=== PATIENT | male | born 1935 | race Caucasian/White ===

== ENCOUNTER 2016-03-21 20:27 | Inpatient (IN) | payer OTHER, MEDICARE ==
[~2016-03-21] VITALS: Ht 177.8 cm; Wt 98.5 kg
[~2016-03-21 20:27] MED LIST: ADVAIR HFA120 INHALA IH; AMLODIPINE BESYL5 MG PO; ASPIRIN81 M1 PO; CEPHALEXIN500 MG PO; COUMADIN,JANTO7.5 MG PO; COUMADIN5 MG PO; FUROSEMIDE40 MG PO; GLIPIZIDE5 MG PO; LASIX10 MG PO; LASIX40 MG PO; LO-DOSE ASPIRIN81 M1 PO; LOPRESSOR100 M1 PO; METOPROLOL SUC100 MG PO; PANTOPRAZOLE SO40 MG PO; PREDNISONE20 MG PO; SIMVASTATIN80 M1 PO; TYLENOL REGULA325 MG PO; VITAMIN C500 M1 PO; VITAMIN E400 UNIT PO; ZESTORETIC,P1 TABLE2 PO
[2016-03-21 20:59] LABS: HEMATOCRIT 36.4 % (38.0-50.0); MCH 30.1 PG (29.0-34.0); MCHC 32.1 G/DL (30.0-36.0); MCV 93.6 FL (86-99); MEAN PLAT.VOLUME 9.1 uM^3 (9.0-12.4); PLATELET COUNT 224 K/uL (156-360); RBC DIS.WIDTH-SD 58.5 % (39-53); RED BLOOD COUNT 3.89 M/uL (4.00-5.50)
[2016-03-21 21:15] LABS: CHLORIDE 105 mEq/L (99-109); POTASSIUM 4.6 mEq/L (3.7-5.4); SODIUM 139 mEq/L (136-147)
[2016-03-21 21:17] LABS: GLUCOSE 352 mg/dL (70-99)
[2016-03-21 21:18] LABS: ANION GAP 11 MEQ/L (2-14)
[2016-03-21 21:21] LABS: GFR ESTIMATE (CALCULATED) 36 mL/min/; TROP-I INTERPRETATION NEGATIVE; TROPONIN-I 0.11 ng/mL (0.0-0.30)
[2016-03-21 21:22] LABS: UREA NITROGEN (BUN) 30 mg/dL (9-23)
[2016-03-21 22:20] LABS: INTER. NORMALIZED RATIO 2.8; PROTHROMBIN TIME 29.5 (9.2-11.2); PTT 43.2 (25-32)
[2016-03-21] MEDS ORDERED: WARFARIN SODIUM5 MG PO (22:26)
[2016-03-21] MEDS ORDERED: SIMVASTATIN80 MG PO (22:31)
[2016-03-21] MEDS ORDERED: FUROSEMIDE40 MG PO (22:34)
[2016-03-21] MEDS ORDERED: PREDNISONE5 MG PO (22:48)
[2016-03-21] MEDS ORDERED: VITAMIN A DAY1 EACH PO (22:52)
[2016-03-21] MEDS ORDERED: ALLOPURINOL100 MG PO (22:52)
[2016-03-21] MEDS ORDERED: ZITHROMAX250 MG PO (22:54)
[2016-03-21] MEDS ORDERED: MSM1000 MG PO (22:55)
[2016-03-21] MEDS ORDERED: DUONEB 2.5-0.5 M3 ML AEROSOL (22:56)
[2016-03-22 02:51] LABS: POINT-OF-CARE METER ID UU13113702
[2016-03-22 06:32] LABS: HEMATOCRIT 32.9 % (38.0-50.0); MCH 29.5 PG (29.0-34.0); MCHC 31.6 G/DL (30.0-36.0); MCV 93.5 FL (86-99); MEAN PLAT.VOLUME 9.5 uM^3 (9.0-12.4); PLATELET COUNT 184 K/uL (156-360); RBC DIS.WIDTH-CV 17.7 % (11.8-14.6); RBC DIS.WIDTH-SD 60.5 % (39-53); RED BLOOD COUNT 3.52 M/uL (4.00-5.50); WHITE BLOOD COUNT 7.4 K/uL (4.1-10.2)
[2016-03-22 06:42] LABS: INTER. NORMALIZED RATIO 2.9; PROTHROMBIN TIME 30.6 (9.2-11.2)
[2016-03-22 06:56] LABS: ANION GAP 8 MEQ/L (2-14); CHLORIDE 106 MEQ/L (99-109); GFR ESTIMATE (CALCULATED) 44 mL/min/; POTASSIUM 4.2 MEQ/L (3.7-5.4); SAMPLE HEMOLYSIS CHECK 0; SAMPLE ICTERIC CHECK 0; SAMPLE LIPEMIA CHECK 0; SODIUM 142 MEQ/L (136-147); UREA NITROGEN (BUN) 32 mg/dL (9-23)
[2016-03-22 07:03] LABS: EOSINOPHIL (%) 0.4 % (0-5); IMMATURE GRANULOCYTE (%) 0.1 % (0.0-0.7); LYMPHOCYTE COUNT 0.7 K/uL (1.0-2.8); MONOCYTE COUNT 0.7 K/uL (0-0.8); NEUTROPHIL (%) 80.4 % (45-76)
[2016-03-22 07:05] LABS: GLUCOSE 160 mg/dL (70-99)
[2016-03-22 07:18] LABS: POINT-OF-CARE METER ID UU13113702
[2016-03-22 11:02] VITALS: BP 91/46
[2016-03-22 11:18] LABS: POINT-OF-CARE METER ID UU13113702
[2016-03-22 11:33] VITALS: BP 98/62
[2016-03-22 13:29] VITALS: BP 134/68
[2016-03-22 16:21] VITALS: BP 137/78
[2016-03-22 19:00] VITALS: BP 122/61
[2016-03-22 21:29] LABS: POINT-OF-CARE METER ID UU13113698
[2016-03-22 23:00] VITALS: BP 134/77
[2016-03-23 03:00] VITALS: BP 107/59
[2016-03-23 06:51] LABS: HEMATOCRIT 31.6 % (38.0-50.0); MCH 29.6 PG (29.0-34.0); MCHC 31.3 G/DL (30.0-36.0); MCV 94.6 FL (86-99); MEAN PLAT.VOLUME 9.7 uM^3 (9.0-12.4); PLATELET COUNT 173 K/uL (156-360); RBC DIS.WIDTH-CV 17.5 % (11.8-14.6); RBC DIS.WIDTH-SD 60.4 % (39-53); RED BLOOD COUNT 3.34 M/uL (4.00-5.50); WHITE BLOOD COUNT 5.9 K/uL (4.1-10.2)
[2016-03-23 06:58] LABS: INTER. NORMALIZED RATIO 3.1; PROTHROMBIN TIME 33.2 (9.2-11.2)
[2016-03-23 07:01] LABS: EOSINOPHIL (%) 0 % (0-5); IMMATURE GRANULOCYTE (%) 0.3 % (0.0-0.7); LYMPHOCYTE COUNT 0.5 K/uL (1.0-2.8); MONOCYTE (%) 2.6 % (3-12); MONOCYTE COUNT 0.2 K/uL (0-0.8); NEUTROPHIL COUNT 5.2 K/uL (1.8-6.4)
[2016-03-23 07:23] VITALS: BP 116/57
[2016-03-23 07:34] LABS: ANION GAP 9 MEQ/L (2-14); CHLORIDE 107 MEQ/L (99-109); GFR ESTIMATE (CALCULATED) 36 mL/min/; GLUCOSE 165 mg/dL (70-99); SAMPLE HEMOLYSIS CHECK 0; SAMPLE ICTERIC CHECK 0; SAMPLE LIPEMIA CHECK 0; SODIUM 144 MEQ/L (136-147); UREA NITROGEN (BUN) 42 mg/dL (9-23)
[2016-03-23 07:57] LABS: POINT-OF-CARE METER ID UU13113698; POINT-OF-CARE USER ID ENVKC36
[2016-03-23 11:53] LABS: POINT-OF-CARE METER ID UU13113781
[2016-03-23 12:02] VITALS: BP 134/78
[2016-03-23 17:18] VITALS: BP 128/72
[2016-03-23 19:00] VITALS: BP 127/67
[2016-03-23 22:44] LABS: POINT-OF-CARE METER ID UU14174216
[2016-03-23 22:46] LABS: POINT-OF-CARE METER ID UU13113781; POINT-OF-CARE USER ID ENVKC36
[2016-03-23 23:00] VITALS: BP 108/63
[2016-03-24 03:00] VITALS: BP 104/50
[2016-03-24 06:45] LABS: EOSINOPHIL (%) 0 % (0-5); HEMATOCRIT 35.2 % (38.0-50.0); IMMATURE GRANULOCYTE (%) 0.4 % (0.0-0.7); LYMPHOCYTE COUNT 0.8 K/uL (1.0-2.8); MCH 29.6 PG (29.0-34.0); MCHC 31.5 G/DL (30.0-36.0); MCV 93.9 FL (86-99); MEAN PLAT.VOLUME 10.2 uM^3 (9.0-12.4); MONOCYTE (%) 3.4 % (3-12); MONOCYTE COUNT 0.3 K/uL (0-0.8); NEUTROPHIL COUNT 8.6 K/uL (1.8-6.4); PLATELET COUNT 213 K/uL (156-360); RBC DIS.WIDTH-CV 17.3 % (11.8-14.6); RBC DIS.WIDTH-SD 58.4 % (39-53); RED BLOOD COUNT 3.75 M/uL (4.00-5.50)
[2016-03-24 06:46] LABS: WHITE BLOOD COUNT 9.8 K/uL (4.1-10.2)
[2016-03-24 07:01] LABS: ANION GAP 10 MEQ/L (2-14); CHLORIDE 105 MEQ/L (99-109); GFR ESTIMATE (CALCULATED) 41 mL/min/; GLUCOSE 131 mg/dL (70-99); SAMPLE HEMOLYSIS CHECK 0; SAMPLE ICTERIC CHECK 0; SAMPLE LIPEMIA CHECK 0; SODIUM 146 MEQ/L (136-147); UREA NITROGEN (BUN) 49 mg/dL (9-23)
[2016-03-24 07:20] VITALS: BP 123/80
[2016-03-24 07:22] LABS: POTASSIUM 3.9 MEQ/L (3.7-5.4)
[2016-03-24 07:43] LABS: POINT-OF-CARE USER ID ENVKC36
[2016-03-24 10:09] LABS: INTER. NORMALIZED RATIO 3.3; PROTHROMBIN TIME 35.1 (9.2-11.2)
[2016-03-24 11:22] VITALS: BP 134/67
[2016-03-24 11:33] LABS: POINT-OF-CARE USER ID ENVKC36
[2016-03-24 15:55] VITALS: BP 123/76
[2016-03-24 16:49] LABS: POINT-OF-CARE METER ID UU14174216; POINT-OF-CARE USER ID ENVKC36
[2016-03-24 19:55] VITALS: BP 133/71
[2016-03-24 20:51] LABS: POINT-OF-CARE METER ID UU13113698
[2016-03-25 00:36] VITALS: BP 117/55; BP 123/69
[2016-03-25 04:30] VITALS: BP 128/60
[2016-03-25 05:01] LABS: CHLORIDE 106 mEq/L (99-109); POTASSIUM 3.9 mEq/L (3.7-5.4); SODIUM 145 mEq/L (136-147)
[2016-03-25 05:03] LABS: INTER. NORMALIZED RATIO 3.1; PROTHROMBIN TIME 32.3 (9.2-11.2)
[2016-03-25 05:04] LABS: ANION GAP 9 MEQ/L (2-14)
[2016-03-25 05:06] LABS: GFR ESTIMATE (CALCULATED) 38 mL/min/
[2016-03-25 05:07] LABS: UREA NITROGEN (BUN) 54 mg/dL (9-23)
[2016-03-25 05:08] LABS: GLUCOSE 206 mg/dL (70-99)
[2016-03-25 07:00] VITALS: BP 118/62
[2016-03-25 07:46] LABS: POINT-OF-CARE METER ID UU13113698
[2016-03-25 11:00] VITALS: BP 136/70
[2016-03-25 11:23] LABS: POINT-OF-CARE METER ID UU13113698
[2016-03-25 15:00] VITALS: BP 133/65
[2016-03-25 19:45] VITALS: BP 151/72
[2016-03-26 00:27] VITALS: BP 136/75
[2016-03-26 04:45] VITALS: BP 120/61
[2016-03-26 05:41] LABS: INTER. NORMALIZED RATIO 2.5; PROTHROMBIN TIME 26.4 (9.2-11.2)
[2016-03-26 07:00] VITALS: BP 126/83
[2016-03-26 11:00] VITALS: BP 137/73
[2016-03-26 15:45] VITALS: BP 163/80
[2016-03-26 19:45] VITALS: BP 151/69
[2016-03-26 21:03] LABS: POINT-OF-CARE METER ID UU13113781
[2016-03-27 00:19] VITALS: BP 123/67
[2016-03-27 04:41] VITALS: BP 133/63
[2016-03-27 06:58] LABS: HEMATOCRIT 33.8 % (38.0-50.0); MCH 29.6 PG (29.0-34.0); MCHC 31.7 G/DL (30.0-36.0); MCV 93.6 FL (86-99); MEAN PLAT.VOLUME 9.9 uM^3 (9.0-12.4); NRBC (%) 0.5 /100 WBC (0-0); PLATELET COUNT 168 K/uL (156-360); RBC DIS.WIDTH-CV 17.1 % (11.8-14.6); RBC DIS.WIDTH-SD 58.2 % (39-53); RED BLOOD COUNT 3.61 M/uL (4.00-5.50); WHITE BLOOD COUNT 9.2 K/uL (4.1-10.2)
[2016-03-27 07:06] LABS: INTER. NORMALIZED RATIO 2.2; PROTHROMBIN TIME 23.1 (9.2-11.2)
[2016-03-27 07:23] LABS: EOSINOPHIL (%) 0 % (0-5); IMMATURE GRANULOCYTE (%) 0.8 % (0.0-0.7); IMMATURE GRANULOCYTE COUNT 0.1 K/uL; LYMPHOCYTE COUNT 0.8 K/uL (1.0-2.8); MONOCYTE (%) 10.1 % (3-12); MONOCYTE COUNT 0.9 K/uL (0-0.8); NEUTROPHIL (%) 79.9 % (45-76); NEUTROPHIL COUNT 7.3 K/uL (1.8-6.4)
[2016-03-27 07:26] LABS: ANION GAP 10 MEQ/L (2-14); CHLORIDE 105 MEQ/L (99-109); GFR ESTIMATE (CALCULATED) 51 mL/min/; GLUCOSE 128 mg/dL (70-99); POTASSIUM 3.6 MEQ/L (3.7-5.4); SAMPLE HEMOLYSIS CHECK 0; SAMPLE ICTERIC CHECK 0; SAMPLE LIPEMIA CHECK 0; SODIUM 149 MEQ/L (136-147); UREA NITROGEN (BUN) 48 mg/dL (9-23)
[2016-03-27 08:10] VITALS: BP 155/68
[2016-03-27 08:46] LABS: POINT-OF-CARE USER ID NUTSLF44
[2016-03-27 11:34] VITALS: BP 113/58
[2016-03-27 12:20] LABS: POINT-OF-CARE METER ID UU14174216; POINT-OF-CARE USER ID NUTSLF44
[2016-03-27 16:11] VITALS: BP 123/79
[2016-03-27 17:28] LABS: POINT-OF-CARE METER ID UU13113698; POINT-OF-CARE USER ID NUTSLF44
[2016-03-27] MEDS ORDERED: FUROSEMIDE40 MG PO (18:38)
[2016-03-27] MEDS ORDERED: ADVAIR HFA120 INHALA IH (18:39)
[2016-03-27] MEDS ORDERED: PREDNISONE5 MG PO (18:40)
[2016-03-27] MEDS ORDERED: LISINOPRIL5 MG PO (18:41)
== END 2016-03-27 20:15 | disposition home or self-care (01) | DRG 291 ==
LOC: EME → EDBD 20:27 → EME 20:27 → 4EAST 22:09 → EDOF 22:09 → 4EAST 03-22 13:09
PROVIDERS: Emergency Medicine; Family Medicine Sports Medicine; Physician Assistant Medical
DX: I50.33 Acute on chronic diastolic (congestive) heart failure (principal); J44.0 Chronic obstructive pulmonary disease with (acute) lower respiratory infection; J18.9 Pneumonia, unspecified organism; I13.0 Hypertensive heart and chronic kidney disease with heart failure and stage 1 through stage 4 chronic kidney disease, or unspecified chronic kidney disease; J81.1 Chronic pulmonary edema; N18.3 Chronic kidney disease, stage 3 (moderate); K21.9 Gastro-esophageal reflux disease without esophagitis; G47.33 Obstructive sleep apnea (adult) (pediatric); D64.9 Anemia, unspecified; E11.22 Type 2 diabetes mellitus with diabetic chronic kidney disease; E66.01 Morbid (severe) obesity due to excess calories; M10.9 Gout, unspecified; I48.2 Chronic atrial fibrillation; R06.02 Shortness of breath; I25.10 Atherosclerotic heart disease of native coronary artery without angina pectoris; I27.81 Cor pulmonale (chronic); I25.2 Old myocardial infarction; E78.5 Hyperlipidemia, unspecified; E11.9 Type 2 diabetes mellitus without complications; Z87.891 Personal history of nicotine dependence; Z86.74 Personal history of sudden cardiac arrest; Z95.2 Presence of prosthetic heart valve; Z98.61 Coronary angioplasty status; Z68.31 Body mass index [BMI] 31.0-31.9, adult
CPT/HCPCS: 71010; 71250; 80048; 82803; 82948; 83605; 83880; 84484; 85025; 85027; 85610; 85730; 87040; 93005; 93306; 94002; 94640; 94640 76; 94660; 94760; 94799; 99202; 99281; 99285; J0456; J0696; J1815; J1940; J1956; J2920; J7050; J7512